=== PATIENT | female | born 1965 | race Hispanic/Latino ===

== ENCOUNTER 2016-12-29 08:50 | Outpatient (CLI) | payer BC ==
--- NOTE | 2016-12-29 13:43 | Cat Scan Report ---
CT HEAD WITHOUT CONTRAST: HISTORY: headache. Serial contiguous axial images were obtained through the cranium. Intravenous contrast material was not administered. The ventricles are normal in size and appearance. There is no mass effect or midline shift. No areas of abnormally increased or decreased attenuation are seen. No mass lesion is seen. The mastoid air cells and visualized portions of the sinuses are normal. IMPRESSION: Cranial CT scan within normal limits.
== END 2016-12-29 08:51 | disposition home or self-care (01) ==
LOC: CT 08:50
PROVIDERS: ATTEND Family Medicine
DX: I10 Essential (primary) hypertension (principal); R04.0 Epistaxis; R51 Headache; R73.01 Impaired fasting glucose
CPT/HCPCS: 36415; 70450; 83036

== ENCOUNTER 2017-12-27 06:08 | Outpatient (CLI) | payer BC ==
[2017-12-27 09:06] LABS: Basophils % (Auto) 0.5 % (0.0-1.8); Eosinophils # (Auto) 0.1 K/mm3 (0.0-0.4); Eosinophils % (Auto) 1.7 % (0.0-4.3); Hemoglobin 12.6 gm/dl (10.1-14.3); Lymphocytes # (Auto) 2.4 K/mm3 (1.2-5.4); Lymphocytes % (Auto) 46.1 % (13.4-35.0); Mean Corpuscular HGB Conc 33 % (30-34); Mean Corpuscular Hemoglobin 29 pg (28-32); Mean Corpuscular Volume 88 fl (79-97); Monocytes # (Auto) 0.3 K/mm3 (0.0-0.8); Monocytes % (Auto) 6.1 % (0.0-7.3); Platelet Count 326 K/mm3 (140-440); Red Blood Count 4.34 M/mm3 (3.65-5.03); Red Cell Distribution Width 13.2 % (13.2-15.2)
[2017-12-27 09:12] LABS: Bacteria,Urine 1+ /HPF (Negative); Bilirubin,Urine NEG (Negative); Blood,Urine NEG (Negative); Color,Urine Yellow (Yellow); Protein,Urine <15 mg/dL mg/dL (Negative); Urobilinogen,Urine < 2.0 mg/dL (<2.0)
[2017-12-27 09:26] LABS: Alanine Aminotransferase 18 units/L (7-56); Albumin 4.5 g/dL (3.9-5); BUN/Creatinine Ratio 23; Blood Urea Nitrogen 9 mg/dL (7-17); Calcium 9.8 mg/dL (8.4-10.2); Hemolysis Index 1
== END 2017-12-27 06:09 | disposition home or self-care (01) ==
LOC: CARD 06:08
PROVIDERS: ATTEND Family Medicine
DX: Z01.818 Encounter for other preprocedural examination (principal); R73.03 Prediabetes; I10 Essential (primary) hypertension; K21.9 Gastro-esophageal reflux disease without esophagitis
CPT/HCPCS: 36415; 80053; 81001; 83036; 85025; 85730; 93005; 93010

== ENCOUNTER 2018-01-19 05:48 | Day surgery (SDC) | payer BC ==
[~2018-01-19 05:48] MED LIST: ANCEF/STERILE WATER 2 GM/20 ML IV NR; MARCAINE 0.25% INFILTRATI ONE; NACL 0.9% IR ONE; XYLOCAINE 1%/ EPI 1:100,000 INFILTRATI ONE
[2018-01-19] MEDS ORDERED: NACL BACTERIOSTATIC INFILTRATI ONE (06:42)
[2018-01-19] MEDS ORDERED: XYLOCAINE MPF 2% ONE (06:57)
[2018-01-19] MEDS ORDERED: ZOFRAN ONE (06:58)
[2018-01-19] MEDS ORDERED: ROBINUL ONE (06:58)
[2018-01-19] MEDS ORDERED: DIPRIVAN 10 MG/ML IV ONE (06:58)
[2018-01-19] MEDS ORDERED: SUBLIMAZE ONE ×2 (06:58→08:59)
[2018-01-19] MEDS ORDERED: MARCAINE 0.25% INFILTRATI ONE (06:59)
[2018-01-19] MEDS ORDERED: XYLOCAINE 1%/ EPI 1:100,000 INFILTRATI ONE (06:59)
[2018-01-19] MEDS ORDERED: VERSED IV NR (07:31)
[2018-01-19] MEDS ORDERED: LACTATED RINGERS 1,000 ML IV SCH (07:32)
--- NOTE | 2018-01-19 07:40 | Anesthesia Consultation ---
Anesthesia Consult and Med Hx Date of service: 01/19/18 - Airway Anesthetic Teeth Evaluation: Good ROM Head & Neck: Adequate Mental/Hyoid Distance: Adequate Mallampati Class: Class II Intubation Access Assessment: Probably Good - Pre-Operative Health Status ASA Pre-Surgery Classification: ASA2 Proposed Anesthetic Plan: General - Pulmonary Hx Smoking: No Hx Sleep Apnea: No (KRISTIN PRE SCREEN HIGH RISK.) - Cardiovascular System Hx Hypertension: Yes (X 15 YRS) - Central Nervous System Hx Back Pain: Yes (Herniated Disc) - Gastrointestinal Hx Gastroesophageal Reflux Disease: Yes - Other Systems Hx Cancer: No Hx Obesity: Yes
--- NOTE | 2018-01-19 07:41 | Anesthesia Day of Surgery ---
Anesthesia Day of Surgery - Day of Surgery Patient Examined: Yes Patient H&P Reviewed: Yes Patient is NPO: Yes
[2018-01-19] MEDS ORDERED: DEMEROL IV PRN (08:01)
[2018-01-19] MEDS ORDERED: DILAUDID IV PRN (08:01)
[2018-01-19] MEDS ORDERED: ZOFRAN IV PRN (08:01)
[2018-01-19] MEDS ORDERED: DECADRON ONE (08:59)
--- NOTE | 2018-01-19 09:38 | Short Stay Summary ---
Short Stay Documentation - Allergies and Medications Current Medications: Allergies No Known Drug Allergies Allergy (Verified 05/28/14 15:53) Unknown Home Medications Medication Instructions Recorded Confirmed Last Taken Type Metoprolol [Lopressor TAB] 50 mg PO DAILY 06/12/14 01/16/18 06/11/14 History Ranitidine HCl [Zantac] 300 mg PO PRN PRN 06/12/14 01/16/18 06/11/14 History Amlodipine Besylate/Valsartan 1 tab PO DAILY 01/16/18 01/16/18 Unknown History [Amlodipine-Valsartan 10-320 mg] Ibuprofen [Advil 100 MG tab] 200 mg PO Q6H PRN 01/16/18 01/16/18 Unknown History hydroCHLOROthiazide [HCTZ] 25 mg PO QDAY 01/16/18 01/16/18 Unknown History Active Medications Cefazolin Sodium (Ancef/Sterile Water 2 Gm/20 Ml) 2 gm IV PREOP NR Stop: 01/19/18 23:00 Hydromorphone HCl (Dilaudid) 0.5 mg IV Q10MIN PRN PRN Reason: Pain , Severe (7-10) Stop: 01/19/18 20:00 Lactated Ringer's (Lactated Ringers) 1,000 mls @ 75 mls/hr IV DIRECT MEG Meperidine HCl (Demerol) 25 mg IV ONCE PRN PRN Reason: Shivering Stop: 01/19/18 15:00 Midazolam HCl (Versed) 2 mg IV ONCE NR Stop: 01/19/18 15:00 Ondansetron HCl (Zofran) 4 mg IV ONCE PRN PRN Reason: Nausea And Vomiting Stop: 01/19/18 20:00 Short Stay Discharge Plan Activity: no restrictions, advance as tolerated Weight Bearing Status: Weight Bear as Tolerated Diet: advance as tolerated, other (resume old diet as tolerated) Wound: change dressing, per your surgeon's advice Special Instructions: physical therapy, occupational therapy Durable Medical Equipment Needed Upon Discharge: Cane Additional Instructions: follow DC instruction sheet. start PT Pain meds prn Follow up with: NOHELIA ALICEA MD [Staff Physician] - 14 Days ALLISON VILLALOBOS MD [Primary Care Provider] - 7 Days
[2018-01-19 11:29] VITALS: BP 130/74
--- NOTE | 2018-01-19 12:47 | Operative Report ---
PREOPERATIVE DIAGNOSES: 1. Medial meniscus tear of the right knee. 2. Osteoarthritis, right knee. POSTOPERATIVE DIAGNOSES: 1. Medial meniscus tear, posterior horn, right knee. 2. Iwaockso-cj-rmcxop osteoarthritis, right knee joint. 3. Synovial hypertrophy, synovial proliferation, right knee joint. PROCEDURES PERFORMED: 1. Right knee arthroscopy. 2. Partial medial meniscectomy. 3. Debridement chondroplasty. 4. Partial synovectomy, right knee joint. BRIEF HISTORY: The patient is a 52-year-old lady, who had a painful right knee, failed conservative treatment, opted for surgical intervention. Risks and benefits were discussed, informed consent obtained, brought to the hospital for the above procedure. DETAILS OF THE OPERATIVE REPORT: The patient was taken to the operating room. After smooth anesthesia, all bony prominences carefully padded. The patient was given 2 gram Ancef half an hour before the procedure. Right knee and right lower extremity was prepped and draped in sterile fashion. Leg elevated, tourniquet inflated to 300 mmHg. Portal sites were infiltrated with 1% lidocaine with epinephrine. High lateral portal was created. Arthroscope introduced. Diagnostic arthroscopy was performed. Under direct visualization, direct medial portal was created. I noticed a flap tear of the cartilage, loos cartilage pieces around the knee with loose floating cartilage pieces, which were suctioned out. A tear in the posterior horn of the medial meniscus was noticed with some fraying and calm. It was in the nonvascular zone mostly. A partial meniscectomy was done, only less than 10% meniscus was debrided and a stable meniscus rim was achieved. We noticed a segment of osteoarthritis of the medial compartment on the medial tibial and femoral condyle, grade 4 changes on the tibial condyle about 40-50%, grade 3 about 30-40%, medial femoral condyle, grade 4 changes in about 40%, and grade 3 changes in about 40%. PCL was intact, ACL chronic partial tear which is intact in keane form. Synovium, synovial hypertrophy, synovial proliferation; using synovial resector, partial synovectomy was performed. No active bleeder as such. Fat pads were normal. The lateral meniscus was intact and pristine. The lateral tibial plateau shows grade 3 changes throughout her about 80%, lateral femoral condyle is pristine. After the 3 procedures were performed, the fluid was suctioned out and necessary pictures were taken throughout the procedure. Fluid was suctioned out and closure was commenced. Arthroscope portal sites were closed with 3-0 nylon interrupted sutures and 0.25% Marcaine plain injected 3 mL into each portal. Dressing was done with Xeroform, 4 x 4s, ABD, cast padding, Humberto wrap. The patient tolerated the procedure very well, shifted to recovery room in stable condition. Sponge and needle count was correct. JOB# [id number] KYRIE/KEN
== END 2018-01-19 11:15 | disposition home or self-care (01) ==
LOC: OR 05:48
PROVIDERS: ATTEND Orthopaedic Surgery
DX: S83.241A Other tear of medial meniscus, current injury, right knee, initial encounter (principal); M17.11 Unilateral primary osteoarthritis, right knee; I10 Essential (primary) hypertension; K21.9 Gastro-esophageal reflux disease without esophagitis; F41.9 Anxiety disorder, unspecified; Z79.899 Other long term (current) drug therapy; Z79.01 Long term (current) use of anticoagulants; Z90.49 Acquired absence of other specified parts of digestive tract; Z98.51 Tubal ligation status; Z86.2 Personal history of diseases of the blood and blood-forming organs and certain disorders involving the immune mechanism; X58.XXXA Exposure to other specified factors, initial encounter; Y93.89 Activity, other specified; Y92.89 Other specified places as the place of occurrence of the external cause; Y99.8 Other external cause status
CPT/HCPCS: 29881; 36415; 81025; 82947; 84132; A4217; J0690; J1100; J2250; J2405; J2704; J3010; J7120

== ENCOUNTER 2018-05-31 07:24 | Outpatient (CLI) | payer BC ==
[2018-05-31 07:49] LABS: Basophils % (Auto) 0.6 % (0.0-1.8); Eosinophils # (Auto) 0.2 K/mm3 (0.0-0.4); Eosinophils % (Auto) 3.4 % (0.0-4.3); Hematocrit 39.2 % (30.3-42.9); Hemoglobin 12.9 gm/dl (10.1-14.3); Lymphocytes # (Auto) 2.8 K/mm3 (1.2-5.4); Lymphocytes % (Auto) 50.8 % (13.4-35.0); Mean Corpuscular HGB Conc 33 % (30-34); Mean Corpuscular Volume 87 fl (79-97); Monocytes # (Auto) 0.5 K/mm3 (0.0-0.8); Monocytes % (Auto) 8.3 % (0.0-7.3); Platelet Count 339 K/mm3 (140-440); Red Blood Count 4.49 M/mm3 (3.65-5.03); Red Cell Distribution Width 13.6 % (13.2-15.2)
[2018-05-31 08:14] LABS: Alanine Aminotransferase 25 units/L (7-56); Albumin 4.4 g/dL (3.9-5); BUN/Creatinine Ratio 18; Blood Urea Nitrogen 7 mg/dL (7-17); Calcium 9.6 mg/dL (8.4-10.2); Hemolysis Index 6; LDL Cholesterol,Direct 160 mg/dL (50-130)
[2018-05-31 08:14] LABS: Bacteria,Urine 1+ /HPF (Negative); Bilirubin,Urine NEG (Negative); Blood,Urine NEG (Negative); Color,Urine Amber (Yellow); Mucus,Urine 3+ /HPF; Urobilinogen,Urine < 2.0 mg/dL (<2.0)
[2018-05-31 08:54] LABS: Chol/HDL Ratio 4.59 %; HDL Cholesterol 44 mg/dL (40-59)
== END 2018-05-31 07:25 | disposition home or self-care (01) ==
LOC: LAB 07:24
DX: Z13.220 Encounter for screening for lipoid disorders (principal); Z13.29 Encounter for screening for other suspected endocrine disorder; I10 Essential (primary) hypertension; K21.9 Gastro-esophageal reflux disease without esophagitis; R73.03 Prediabetes; E66.9 Obesity, unspecified; Z90.49 Acquired absence of other specified parts of digestive tract
CPT/HCPCS: 36415; 80053; 80061; 81001; 83036; 84443; 85025

== ENCOUNTER 2019-02-02 06:04 | Day surgery (SDC) | payer BC ==
[2019-02-02] MEDS ORDERED: LIDOCAINE MPF (2%) 20 MG/1 ML VIAL 5 ML ONE (07:30)
[2019-02-02] MEDS ORDERED: SODIUM CHLORIDE 0.9% 1000 ML 1,000 ML ONE (07:36)
--- NOTE | 2019-02-02 07:38 | Short Stay Summary ---
Short Stay Documentation Date of service: 02/02/19 (Same Day Endoscopy) Narrative H&P: Hx of Barretts Esophagus. Duration of several years. Currently on ranitidine with minimal reflux; no dysphagia, weight loss, or odynophagia. Not currently a smoker. Denies a family hx of esophageal cancer. No chest pain or SOB. - History Principal diagnosis: Barretts/GERD H&P: obtained from office Past Medical History: GERD, hypertension Past Surgical History: cholecystectomy, Other (Tubal ligation, breast reduction, meniscus surgery) Social history: no smoking, no alcohol abuse - Allergies and Medications Current Medications: Allergies No Known Drug Allergies Allergy (Verified 05/28/14 15:53) Unknown Home Medications Medication Instructions Recorded Confirmed Last Taken Type Metoprolol [Lopressor TAB] 50 mg PO DAILY 06/12/14 01/19/18 01/19/18 05:15 History Ranitidine HCl [Zantac] 300 mg PO PRN PRN 06/12/14 01/19/18 01/18/18 History Amlodipine Besylate/Valsartan 1 tab PO DAILY 01/16/18 01/19/18 01/18/18 History [Amlodipine-Valsartan 10-320 mg] Ibuprofen [Advil 100 MG tab] 200 mg PO Q6H PRN 01/16/18 01/19/18 1 Week Ago History ~01/12/18 hydroCHLOROthiazide [HCTZ] 25 mg PO QDAY 01/16/18 01/16/18 01/18/18 History I have reviewed and reconciled medications. - Physical exam General appearance: no acute distress, well-nourished Lungs: Clear to auscultation Heart: Regular rate, No murmurs Gastrointestinal: normal Extremities: no ischemia, No edema Neurological: Normal gait, Normal speech, Normal tone - Brief post op/procedure progress note Date of procedure: 02/02/19 Pre-op diagnosis: Reflux Post-op diagnosis: other (Likely Barretts) Procedure: EGD with cold bx Anesthesia: MAC Findings: 1. Likely SS Barretts (<2cm) at GE jxn) 2. Reflux esophagitis (Grade B) Surgeon: JOVITA SOUTH Estimated blood loss: minimal Pathology: list (1. Esophagus) Specimen disposition: to lab Condition: stable - Hospital course Hospital course: Same day procedure (EGD); outpatient - Disposition Condition at discharge: Good Disposition: DC-01 TO HOME OR SELFCARE Short Stay Discharge Plan Additional Instructions: Avoid Aspirin NSAIDS D/C Instructions X 3 DAYS Avoid the following for the time period specified by your physician: - Asprin(Momo, Bufferin, Excedrin, Goody's or BC Powders) -Ibuprofen (Advil or Motrin) -Naproxen (Aleve or Naprosyn) -Indomethacin, Sulindac, Etodolac, Diclofenac -Meloxicam, Piroxicam, Tenoxicam, Droxicam, Lornoxicam, Isoxicam - Mefenamic acid, Meclofenamic acid, Flufenamic acid, Tolfenamic acid -Celecoxib (Celebrex) Post Sedation D/C Instructions When you return home you may resume your regular diet unless otherwise directed. -Go directly home from the hospital and rest quietly. You may resume normal activities tomorrow. -Do NOT drive, return to work, operate any machinery or make any important personal or business decisions today. -Do NOT drink any alcohol or take nerve or sleeping drugs. They add to the effects of the medicine still present in your body. Follow up with: ALLISON VILLALOBOS MD [Primary Care Provider] - 7 Days
[2019-02-02] MEDS ORDERED: PROPOFOL 200 MG/20 ML VIAL IV ONE ×2 (07:45)
--- NOTE | 2019-02-02 07:56 | Anesthesia Consultation ---
Anesthesia Consult and Med Hx Date of service: 02/02/19 - Airway Anesthetic Teeth Evaluation: Crowns ROM Head & Neck: Adequate Mental/Hyoid Distance: Adequate Mallampati Class: Class II Intubation Access Assessment: Probably Good - Pre-Operative Health Status ASA Pre-Surgery Classification: ASA2 Proposed Anesthetic Plan: MAC - Pulmonary Hx Smoking: No Hx Asthma: No Hx Respiratory Symptoms: No SOB: No COPD: No Home Oxygen Therapy: No Hx Pneumonia: No Hx Sleep Apnea: No (KRISTIN PRE SCREEN HIGH RISK.) - Cardiovascular System Hx Hypertension: Yes Hx Coronary Artery Disease: No Hx Heart Attack/AMI: No Hx Angina: No Hx Percutaneous Transluminal Coronary Angioplasty (PTCA): No Hx Cardia Arrhythmia: No Hx Pacemaker: No Hx Internal Defibrillator: No Hx Valvular Heart Disease: No Hx Heart Murmur: No Hx Peripheral Vascular Disease: No - Central Nervous System Hx Neuromuscular Disorder: No Hx Seizures: No CVA: No Hx Back Pain: Yes (Herniated Disc) Hx Psychiatric Problems: No - Gastrointestinal Hx Ulcer: No Hx Gastroesophageal Reflux Disease: Yes - Endocrine Hx Renal Disease: No Hx End Stage Renal Disease: No Hx Cirrhosis: No Hx Liver Disease: No Hx Insulin Dependent Diabetes: No Hx Non-Insulin Dependent Diabetes: No Hx Thyroid Disease: No Hx Hypothyroidism: No Hx Hyperthyroidism: No - Hematic Hx Anemia: No Hx Sickle Cell Disease: No - Other Systems Hx Alcohol Use: No Hx Substance Use: No Hx Cancer: No Hx Obesity: Yes
--- NOTE | 2019-02-02 07:57 | Anesthesia Consultation ---
Anesthesia Consult and Med Hx Date of service: 02/02/19 - Airway Anesthetic Teeth Evaluation: Good, Crowns ROM Head & Neck: Adequate Mental/Hyoid Distance: Adequate Mallampati Class: Class II - Pulmonary Exam CTA: Yes - Cardiac Exam Cardiac Exam: RRR - Pre-Operative Health Status ASA Pre-Surgery Classification: ASA2 Proposed Anesthetic Plan: MAC - Pulmonary Hx Smoking: No Hx Respiratory Symptoms: No Hx Sleep Apnea: No (KRISTIN PRE SCREEN HIGH RISK.) - Cardiovascular System Hx Hypertension: Yes - Central Nervous System Hx Back Pain: Yes (Herniated Disc) - Gastrointestinal Hx Gastroesophageal Reflux Disease: Yes - Endocrine Hx Renal Disease: No - Other Systems Hx Cancer: No Hx Obesity: Yes - Additional Comments Anesthesia Medical History Comments: Patient denied previous anesthesia complications.
--- NOTE | 2019-02-02 07:57 | Anesthesia Day of Surgery ---
Anesthesia Day of Surgery - Day of Surgery Patient Examined: Yes Patient H&P Reviewed: Yes Patient is NPO: Yes Beta Blockers: Yes
[2019-02-02] MEDS ORDERED: SODIUM CHLORIDE 0.9% 1000 ML 1,000 ML IV SCH (08:00)
[2019-02-02 08:47] VITALS: BP 156/82
--- NOTE | 2019-02-02 18:02 | Post Anesthesia Evaluation ---
- Post Anesthesia Evaluation Patient Participated: Yes Airway Patent: Yes Stable Respiratory Function: Yes Nausea/Vomiting: No Temp > 96.8F: Yes Pain Manageable: Yes Adequeate Hydration: No Anesthesia Complications: Yes Block Receding Appropriately: Not Applicable Patient on Ventilator: No
--- NOTE | 2019-02-06 09:02 | Operative Report ---
PROCEDURE PERFORMED: Esophagogastroduodenoscopy with cold biopsy. PREOPERATIVE DIAGNOSIS: History of Diggs's esophagus with acid reflux/surveillance. POSTOPERATIVE DIAGNOSES: Diggs's esophagus. ENDOSCOPIST: Mickey Pierce MD INSTRUMENT: Olympus video endoscope. MEDICATIONS: MAC anesthesia by [facility]. COMPLICATIONS: No apparent complications. ESTIMATED BLOOD LOSS: Minimal. SPECIMENS: Lower third of the esophagus, rule out Diggs's. IMPLANTS: None. ASSISTANTS: None. CONDITION AT DISCHARGE: Stable. TECHNIQUE: The patient was informed of the risks and benefits of the procedure. She signed the informed consent to proceed. She was placed in the left lateral decubitus position. The above sedative medications were given. Her vital signs remained stable throughout the procedure. The instrument was advanced from the mouth to the second portion of the duodenum under direct visualization. At that point, the bowel was insufflated and the endoscope was slowly withdrawn. FINDINGS: 1. Worthington-colored mucosa in the lower third of the esophagus at the GE junction, likely short segment Diggs's esophagus extending less than 2 cm. A. No worrisome mucosa using narrow band imaging. B. The Diggs's esophagus was sampled in a four quadrant fashion every 0.5 cm and placed in 1 pathology jar. 2. Otherwise, normal upper gastrointestinal tract. RECOMMENDATIONS: 1. Resume normal diet and activities. 2. Follow up pathology. 3. If Diggs's is present, would repeat upper endoscopy in 2 years. 4. Continue current antacid therapy. JOB# [id number] RAFI/NTS
== END 2019-02-02 08:52 | disposition home or self-care (01) ==
LOC: GIO 06:04
PROVIDERS: ATTEND Internal Medicine Gastroenterology
DX: K22.70 Barrett's esophagus without dysplasia (principal); K21.0 Gastro-esophageal reflux disease with esophagitis; I10 Essential (primary) hypertension; E66.9 Obesity, unspecified; M19.90 Unspecified osteoarthritis, unspecified site; F41.9 Anxiety disorder, unspecified; Z79.899 Other long term (current) drug therapy; Z90.49 Acquired absence of other specified parts of digestive tract; Z98.51 Tubal ligation status; Z98.890 Other specified postprocedural states; Z68.36 Body mass index [BMI] 36.0-36.9, adult
CPT/HCPCS: 43239; 88305; J2704; J7030

== ENCOUNTER 2019-06-11 07:23 | Outpatient (CLI) | payer BC ==
[2019-06-11 08:04] LABS: Alanine Aminotransferase 22 units/L (7-56); Albumin 4.5 g/dL (3.9-5); BUN/Creatinine Ratio 23; Blood Urea Nitrogen 9 mg/dL (7-17); Calcium 9.9 mg/dL (8.4-10.2); HDL Cholesterol 50 mg/dL (40-59); Hemolysis Index 0; LDL Cholesterol,Direct 155 mg/dL (50-130)
== END 2019-06-11 07:24 | disposition home or self-care (01) ==
LOC: CARD 07:23
DX: I10 Essential (primary) hypertension (principal)
CPT/HCPCS: 36415; 80053; 80061; 93005; 93010

== ENCOUNTER 2020-01-22 06:05 | Outpatient (CLI) | payer BC ==
[2020-01-22 07:10] LABS: Basophils % (Auto) 0.6 % (0.0-1.8); Eosinophils # (Auto) 0.2 K/mm3 (0.0-0.4); Eosinophils % (Auto) 2.9 % (0.0-4.3); Hematocrit 37.2 % (30.3-42.9); Hemoglobin 12.6 gm/dl (10.1-14.3); Lymphocytes % (Auto) 47.4 % (13.4-35.0); Mean Corpuscular HGB Conc 34 % (30-34); Mean Corpuscular Volume 88 fl (79-97); Monocytes # (Auto) 0.3 K/mm3 (0.0-0.8); Monocytes % (Auto) 5.3 % (0.0-7.3); Platelet Count 293 K/mm3 (140-440); Red Blood Count 4.26 M/mm3 (3.65-5.03); Red Cell Distribution Width 13.8 % (13.2-15.2)
[2020-01-22 07:16] LABS: Bilirubin,Urine NEG (Negative); Blood,Urine SM (Negative); Color,Urine Yellow (Yellow); Mucus,Urine FEW /HPF; Protein,Urine <15 mg/dL mg/dL (Negative); Urobilinogen,Urine < 2.0 mg/dL (<2.0)
[2020-01-22 08:15] LABS: Alanine Aminotransferase 21 units/L (7-56); Albumin 4.3 g/dL (3.9-5); Blood Urea Nitrogen 10 mg/dL (7-17); Calcium 9.7 mg/dL (8.4-10.2); Hemolysis Index 10
[2020-01-22 08:18] LABS: BUN/Creatinine Ratio 25
[2020-01-22 08:40] LABS: LDL Cholesterol,Direct 4 mg/dL (50-130)
[2020-01-22 10:09] LABS: Chol/HDL Ratio 3.49 %; HDL Cholesterol 53 mg/dL (40-59)
== END 2020-01-22 06:06 | disposition home or self-care (01) ==
LOC: LAB 06:05
PROVIDERS: ATTEND Physician Assistant
DX: Z00.00 Encounter for general adult medical examination without abnormal findings (principal); R73.03 Prediabetes; Z13.220 Encounter for screening for lipoid disorders; I10 Essential (primary) hypertension; M19.90 Unspecified osteoarthritis, unspecified site
CPT/HCPCS: 36415; 80053; 80061; 81001; 83036; 85025

== ENCOUNTER 2020-02-27 06:05 | Outpatient (CLI) | payer BC ==
[2020-02-27 09:23] LABS: Alanine Aminotransferase 24 units/L (7-56); Albumin 4.3 g/dL (3.9-5)
[2020-02-27 09:33] LABS: Bilirubin,Direct < 0.2 mg/dL (0-0.2)
== END 2020-02-27 06:06 | disposition home or self-care (01) ==
LOC: LAB 06:05
PROVIDERS: ATTEND Internal Medicine
DX: I10 Essential (primary) hypertension (principal); Z79.899 Other long term (current) drug therapy
CPT/HCPCS: 36415; 80076

== ENCOUNTER 2020-05-21 12:16 | Emergency (ER) | payer BC ==
[2020-05-21 13:06] VITALS: BP 181/90
--- NOTE | 2020-05-21 13:10 | Emergency Department Report ---
Stated Complaint: HBP - HPI History of Present Illness: 54-year-old -[place] female presents to the emergency room concern for elevated blood pressure. Patient states that she is checked her blood pressure at home and has been elevated. Patient reports that she is followed by Dr. Reuben Wolf at [facility] and is currently taking 3 blood pressure medications. Patient denies any headache no chest pain or shortness of breath. - Exam Vital Signs: Vital Signs 05/21/20 13:00 Temperature 98.4 F Pulse Rate 76 Respiratory 16 Rate Blood Pressure 181/90 O2 Sat by Pulse 100 Oximetry Physical Exam: Gen: alert oriented NAD Cardic: regular rate and rhythm no murmurs appreciated Resp: Clear to auscultation bilateral no wheezing no rales or rhonchi. Abdomen: Soft nontender nondistended normal bowel sounds. Mini neuro: Normal finger to nose exam, [id number] normal, Romberg neg, strengh 4/5 all extrimities, Alert and oriented time 3 Crainal nerve II-IIX intact MSE screening note: Focused history and physical exam performed. Due to findings the following was ordered: 54-year-old -[place] female presents to the emergency room concern for elevated blood pressure. Patient states that she is checked her blood pressure at home and has been elevated. Patient reports that she is followed by Dr. Reuben Wolf at [facility] and is currently taking 3 blood pressure medications. Patient denies any headache no chest pain or shortness of breath. ED Disposition for MSE Clinical Impression: Hypertension Disposition: DC-01 TO HOME OR SELFCARE Is pt being admited?: No Does the pt Need Aspirin: No Condition: Stable Instructions: Hypertension (ED), Hypertension, Adult, [id number] Additional Instructions: Recommend to follow-up with your primary care provider or senior linux engineer to reevaluate your blood pressure as she may need adjustments to blood pressure medication. Be sure to increase your water intake avoid processed foods. Referrals: REUBEN WOLF MD [Referring] - 3-5 Days Forms: Work/School Release Form(ED)
== END 2020-05-21 13:24 | disposition home or self-care (01) ==
LOC: ED 12:16
DX: I10 Essential (primary) hypertension (principal)
CPT/HCPCS: 99281

== ENCOUNTER 2020-05-26 09:09 | Outpatient (CLI) | payer BC ==
[2020-05-26 10:18] LABS: Alanine Aminotransferase 32 units/L (7-56); Albumin 4.4 g/dL (3.9-5); Blood Urea Nitrogen 11 mg/dL (7-17); Calcium 9.4 mg/dL (8.4-10.2); Chol/HDL Ratio 3.72 %; HDL Cholesterol 50 mg/dL (40-59); Hemolysis Index 2; LDL Cholesterol,Direct 132 mg/dL (50-130)
[2020-05-26 10:22] LABS: BUN/Creatinine Ratio 28
== END 2020-05-26 09:10 | disposition home or self-care (01) ==
LOC: LAB 09:09 → EDSTATUS 09:14
PROVIDERS: ATTEND Family Medicine
DX: R73.03 Prediabetes (principal)
CPT/HCPCS: 36415; 80053; 80061; 83036

== ENCOUNTER 2020-07-01 09:45 | Outpatient (CLI) | payer BC ==
--- NOTE | 2020-07-01 12:31 | XRay Report ---
LEFT SHOULDER 3 VIEWS INDICATION: LEFT SHOULDER PAIN. COMPARISON: None. IMPRESSION: No acute osseous or soft tissue abnormality. No significant DJD. Signer Name: Harjinder Ledesma Jr, MD Signed: 07/01/2020 12:20 PM Workstation Name: [id number]
--- NOTE | 2020-07-10 08:56 | Magnetic Resonance Report ---
MRI LUMBAR SPINE 07/01/2020 INDICATION / CLINICAL INFORMATION: LOWER BACK AND RT HIP/LEG PAIN. COMPARISON: None available. FINDINGS: GENERAL OBSERVATIONS: Unenhanced MR images of the lumbar spine were obtained. There is mild left convex scoliosis of the lumbar spine present. Vertebral body alignment is otherwis e unremarkable. There is no evidence of acute abnormality. [id number] ANALYSIS: L5-S1: Minimal diffuse disc bulging and moderate facet degenerative changes. L4-5: Minimal diffuse disc bulging and moderate facet degenerative changes. L3-4: Mild symmetric diffuse disc bulging and mild facet degenerative changes. L2-3: Disc space narrowing and moderate diffuse disc bulging. Small left paracentral protrusion. No e vidence of stenosis or nerve root compression. L1-2: Unremarkable. BONE MARROW: No significant abnormality. SPINAL CORD/CAUDA EQUINA: Normal PARASPINAL SOFT TISSUES: No significant abnormality. IMPRESSION: Mild to moderate degenerative disc and facet changes, with no evidence of stenosis or nerve root comp ression. Signer Name: Dada Flores MD Signed: 07/01/2020 1:42 PM Workstation Name: [id number]
--- NOTE | 2020-07-10 08:56 | Magnetic Resonance Report ---
MRI THORACIC SPINE WITHOUT CONTRAST HISTORY: Lower back pain and right hip/leg pain COMPARISON: None. TECHNIQUE: Multiplane, multisequence non-contrast thoracic spine MRI performed. CONTRAST: None. FINDINGS: Alignment: Normal. Vertebrae:No significant abnormality. Discs: There is mild diffuse disc desiccation and narrowing. No large posterior bulging disc or focal herniation. Visualized cord: No significant abnormality. T1-2: No significant disc abnormality, spinal canal or neural foraminal stenosis. T2-3: No significant disc abnormality, spinal canal or neural foraminal stenosis. T3-4: No significant disc abnormality, spinal canal or neural foraminal stenosis. T4-5: No significant disc abnormality, spinal canal or neural foraminal stenosis. T5-6: No significant disc abnormality, spinal canal or neural foraminal stenosis. T6-7: No significant disc abnormality, spinal canal or neural foraminal stenosis. T7-8: No significant disc abnormality, spinal canal or neural foraminal stenosis. T8-9: No significant disc abnormality, spinal canal or neural foraminal stenosis. T9-10: No significant disc abnormality, spinal canal or neural foraminal stenosis. T10-11: No significant disc abnormality, spinal canal or neural foraminal stenosis. T11-12: No significant disc abnormality, spinal canal or neural foraminal stenosis. Additional findings: The localizer images demonstrate a mild diffuse posterior bulging disc at C5-6 w hich abuts the anterior cervical spinal cord. No central canal narrowing. IMPRESSION: Mild diffuse disc desiccation and narrowing is noted throughout the thoracic spine. No evidence for l arge bulging discs, herniation, central canal stenosis or neural foraminal stenosis. No acute osseous abnormality. Signer Name: Harjinder Ledesma Jr, MD Signed: 07/01/2020 12:13 PM Workstation Name: [id number]
== END 2020-07-01 09:46 | disposition home or self-care (01) ==
LOC: MRI 09:45
PROVIDERS: ATTEND Psychiatry & Neurology Neurology
DX: M51.27 Other intervertebral disc displacement, lumbosacral region (principal); M48.061 Spinal stenosis, lumbar region without neurogenic claudication; M47.817 Spondylosis without myelopathy or radiculopathy, lumbosacral region; M25.512 Pain in left shoulder; M54.2 Cervicalgia
CPT/HCPCS: 72146; 72148

== ENCOUNTER 2020-08-06 08:05 | Emergency (ER) | payer BC ==
--- NOTE | 2020-08-06 08:21 | Event Note ---
ED Screening Note Date of service: 08/06/20 Time: 08:20 ED Screening Note: Patient complains of dizziness and headache x2 weeks Also complains of blood pressure being elevated Denies vision changes, chest pain, shortness of breath This initial assessment/diagnostic orders/clinical plan/treatment(s) is/are subject to change based on patients health status, clinical progression and re- assessment by fellow clinical providers in the ED. Further treatment and workup at subsequent clinical providers discretion. Patient/guardian urged not to elope from the ED as their condition may be serious if not clinically assessed and managed. Initial orders include: Labs EKG CT head
--- NOTE | 2020-08-06 08:47 | Cat Scan Report ---
CT HEAD WITHOUT CONTRAST INDICATION / CLINICAL INFORMATION: Dizziness, headache. TECHNIQUE: All CT scans at this location are performed using CT dose reduction for ALARA by means of automated e xposure control. COMPARISON: 08/23/2019 FINDINGS: There is no acute intracranial hemorrhage. Ventricles are normal in size without midline shift or mas s effect. Calcifications in basal ganglia region left slightly greater than right incidentally noted. Orbits and intraocular muscles appear normal sella and pituitary appear normal. ADDITIONAL FINDINGS: None. IMPRESSION: 1. No acute intracranial abnormality. Signer Name: Satish Langley MD Signed: 08/06/2020 8:42 AM Workstation Name: [id number]
[2020-08-06 09:11] LABS: Bilirubin,Urine NEG (Negative); Blood,Urine NEG (Negative); Color,Urine Yellow (Yellow); Mucus,Urine FEW /HPF; Protein,Urine <15 mg/dL mg/dL (Negative); Urobilinogen,Urine < 2.0 mg/dL (<2.0)
[2020-08-06 09:20] LABS: Basophils % (Auto) 0.5 % (0.0-1.8); Eosinophils # (Auto) 0.1 K/mm3 (0.0-0.4); Eosinophils % (Auto) 2.2 % (0.0-4.3); Hematocrit 38.3 % (30.3-42.9); Hemoglobin 13.2 gm/dl (10.1-14.3); Lymphocytes # (Auto) 2.4 K/mm3 (1.2-5.4); Lymphocytes % (Auto) 53.8 % (13.4-35.0); Mean Corpuscular HGB Conc 35 % (30-34); Mean Corpuscular Volume 88 fl (79-97); Monocytes # (Auto) 0.2 K/mm3 (0.0-0.8); Platelet Count 305 K/mm3 (140-440); Red Blood Count 4.36 M/mm3 (3.65-5.03); Red Cell Distribution Width 13.4 % (13.2-15.2)
[2020-08-06 09:52] LABS: Alanine Aminotransferase 21 units/L (7-56); Albumin 4.1 g/dL (3.9-5); Blood Urea Nitrogen 9 mg/dL (7-17); Calcium 9.4 mg/dL (8.4-10.2); Hemolysis Index 7
--- NOTE | 2020-08-06 10:03 | Emergency Department Report ---
HPI - General Chief Complaint: High BP Time Seen by Provider: 08/06/20 08:13 - HPI HPI: Room 22 The patient is a 55-year-old female present with chief complaint of hypertension. The patient states for the past 2 weeks she is noticing blood pressure has been elevated. Patient states she has noticed intermittent lightheadedness and intermittent headaches for the same time. Patient admits to nausea but denies vomiting or fever. Patient denies history of cough. Yesterday and the patient states she was on her way to work when she began to feel lightheaded so she went to her primary physician's office. She was found to be hypertensive and was instructed to go home and relax. The patient states this morning she got up and on her way to the kitchen she again felt "woozy" prompting her to sit down. Patient checked her blood pressure and was found to be 172/80s this prompted the patient come to the emergency department ED Past Medical Hx - Past Medical History Hx Hypertension: Yes Hx Diabetes: No (RECENT ELEVATION OF A1C- NO DX YET) Hx GERD: Yes Hx Arthritis: Yes Additional medical history: MITRAL VALVE REGURGITATION. PRE DIABETIC - Surgical History Hx Cholecystectomy: Yes Hx Breast Surgery: Yes (BREAST SURGERY) Additional Surgical History: TUBAL LIGATION - Family History Family history: no significant - Social History Smoking Status: Never Smoker Substance Use Type: None (Denies illicit drug use), Alcohol (Rarely) - Medications Home Medications: Home Medications Medication Instructions Recorded Confirmed Last Taken Type Metoprolol [Lopressor TAB] 50 mg PO DAILY 06/12/14 08/06/20 01/19/18 05:15 History Amlodipine Besylate/Valsartan 1 tab PO DAILY 01/16/18 08/06/20 01/18/18 History [Amlodipine-Valsartan 10-320 mg] Ibuprofen [Advil 100 MG tab] 200 mg PO Q6H PRN 01/16/18 08/06/20 1 Week Ago History ~01/12/18 hydroCHLOROthiazide [HCTZ] 25 mg PO QDAY 01/16/18 08/06/20 01/18/18 History Amlodipine Besylate/Valsartan 10 - 320 mg PO QDAY 08/23/19 08/06/20 08/23/19 History [Amlodipine-Valsartan 10-320 mg] Aspirin [Aspirin BABY CHEW TAB] 81 mg PO QDAY #30 tab.chew 08/24/19 08/06/20 Unknown Rx ED Review of Systems ROS: Stated complaint: ELEVATED BLOOD PRESSURE Other details as noted in HPI Constitutional: denies: fever Eyes: denies: eye pain ENT: denies: throat pain Respiratory: no symptoms reported Cardiovascular: denies: chest pain Endocrine: no symptoms reported Gastrointestinal: denies: abdominal pain Genitourinary: denies: dysuria Musculoskeletal: denies: back pain Neurological: headache, other (Lightheadedness) Physical Exam - Physical Exam Vital Signs: Vital Signs 08/06/20 08:10 Temperature 98.6 F Pulse Rate 80 Respiratory 20 Rate Blood Pressure 174/81 O2 Sat by Pulse 98 Oximetry Vital Signs 08/06/20 08/06/20 08/06/20 08:10 10:19 11:22 Temperature 98.6 F Pulse Rate 80 82 88 Respiratory 20 Rate Blood Pressure 174/81 162/84 Blood Pressure 148/74 [Right] O2 Sat by Pulse 98 Oximetry Physical Exam: GENERAL: The patient is well-developed well-nourished female lying on stretcher not appearing to be in acute distress. [] HEENT: Normocephalic. Atraumatic. Extraocular motions are intact. Patient has moist mucous membranes. No nystagmus noted NECK: Supple. Trachea midline CHEST/LUNGS: Clear to auscultation. There is no respiratory distress noted. HEART/CARDIOVASCULAR: Regular. There is no tachycardia. There is no gallop rub or murmur. ABDOMEN: Abdomen is soft, nontender. Patient has normal bowel sounds. There is no abdominal distention. SKIN: There is no rash. There is no edema. There is no diaphoresis. NEURO: The patient is awake, alert, and oriented. The patient is cooperative. The patient has no focal neurologic deficits. The patient has normal speech. Cranial nerves II through XII grossly intact. No dysmetria noted with [id number] bilaterally MUSCULOSKELETAL: There is no evidence of acute injury. ED Course Vital Signs 08/06/20 08:10 Temperature 98.6 F Pulse Rate 80 Respiratory 20 Rate Blood Pressure 174/81 O2 Sat by Pulse 98 Oximetry ED Medical Decision Making - Lab Data Result diagrams: 08/06/20 08:53 08/06/20 08:53 Laboratory Tests 08/06/20 08/06/20 08/06/20 08:48 08:53 08:53 WBC 4.5 RBC 4.36 Hgb 13.2 Hct 38.3 MCV 88 MCH 30 MCHC 35 H RDW 13.4 Plt Count 305 Lymph % (Auto) 53.8 H Coal % (Auto) 5.0 Eos % (Auto) 2.2 Baso % (Auto) 0.5 Lymph # (Auto) 2.4 Coal # (Auto) 0.2 Eos # (Auto) 0.1 Baso # (Auto) 0.0 Seg Neutrophils % 38.5 L Seg Neutrophils # 1.7 L Sodium 143 Potassium 3.7 Chloride 102.7 Carbon Dioxide 28 Anion Gap 16 BUN 9 Creatinine 0.5 L Estimated GFR > 60 BUN/Creatinine Ratio 18 Glucose 105 H Calcium 9.4 Total Bilirubin 0.30 AST 20 ALT 21 Alkaline Phosphatase 60 Troponin T < 0.010 Total Protein 7.3 Albumin 4.1 Albumin/Globulin Ratio 1.3 Urine Color Yellow Urine Turbidity Clear Urine pH 6.0 Ur Specific [place] 1.010 Urine Protein <15 mg/dl Urine Glucose (UA) Neg Urine Ketones Neg Urine Blood Neg Urine Nitrite Neg Urine Bilirubin Neg Urine Urobilinogen < 2.0 Ur Leukocyte Esterase Neg Urine WBC (Auto) 1.0 Urine RBC (Auto) 1.0 U Epithel Cells (Auto) 1.0 Urine Mucus Few - EKG Data -: EKG Interpreted by Fl EKG shows normal: sinus rhythm Rate: normal - EKG Data When compared to previous EKG there are: previous EKG unavailable Interpretation: other (No ischemic changes seen) - Radiology Data Radiology results: report reviewed (CT head), image reviewed (CT head) [facility] [address] [place] [address] Cat Scan Report Signed Patient: JORDAN MONROY MR#: [id number] 8 : 1965 Acct:[id number] Age/Sex: 55 / F ADM Date: 08/06/20 Loc: ED Attending Dr: Ordering Physician: FEDE PINTO Date of Service: 08/06/20 Procedure(s): CT head/brain wo con Accession Number(s): [id number] cc: FEDE PINTO CT HEAD WITHOUT CONTRAST INDICATION / CLINICAL INFORMATION: Dizziness, headache. TECHNIQUE: All CT scans at this location are performed using CT dose reduction for ALARA by means of automated exposure control. COMPARISON: 08/23/2019 FINDINGS: There is no acute intracranial hemorrhage. Ventricles are normal in size without midline shift or mass effect. Calcifications in basal ganglia region left slightly greater than right incidentally noted. Orbits and intraocular muscles appear normal sella and pituitary appear normal. ADDITIONAL FINDINGS: None. IMPRESSION: 1. No acute intracranial abnormality. Signer Name: Satish Langley MD Signed: 08/06/2020 8:42 AM Workstation Name: [id number] Transcribed By: CW Dictated By: DAVID LANGLEY MD Electronically Authenticated By: DAVID LANGLEY MD Signed Date/Time: 08/06/20841 DD/ 0 TD/TT: Print - Differential Diagnosis Hypertensive urgency, ICH, vertigo, electrolyte imbalance Critical care attestation.: If time is entered above; I have spent that time in minutes in the direct care of this critically ill patient, excluding procedure time. ED Disposition Clinical Impression: Hypertension Disposition: DC-01 TO HOME OR SELFCARE Is pt being admited?: No Does the pt Need Aspirin: No Condition: Stable Instructions: Hypertension (ED), Hypertension, Adult, [id number] Additional Instructions: Return to the emergency department should you develop worsening symptoms, inability to tolerate food or liquids, high fever or any other concerns Referrals: ALAN FUENTES MD [Primary Care Provider] - 3-5 Days Time of Disposition: 11:35
[2020-08-06] MEDS ORDERED: cloNIDine 0.1 MG TAB PO ONE (10:08)
[2020-08-06 10:29] LABS: BUN/Creatinine Ratio 18
[2020-08-06 11:23] VITALS: BP 148/74
--- NOTE | 2020-08-07 10:48 | Electrocardiograph Report ---
[facility] Test Date: 2020-08-06 Test Time: 08:21:11 Pat Name: JORDAN MONROY Department: Room: Gender: F Recreational Programs Director: CHARAN : 1965 Requested By: MARIELY SILVA Order Number: [id number] Reading MD: Rich Marshall Measurements Intervals [place] Rate: 72 P: 65 AL: 168 QRS: 15 QRSD: 90 T: 47 QT: 402 QTc: 440 Interpretive Statements Sinus rhythm Probable left atrial enlargement No previous ECG available for comparison Electronically Signed On 08-07-2020 10:48:26 EDT by Rich Marshall
== END 2020-08-06 12:33 | disposition home or self-care (01) ==
LOC: ED 08:05
DX: I10 Essential (primary) hypertension (principal); K21.9 Gastro-esophageal reflux disease without esophagitis; M19.90 Unspecified osteoarthritis, unspecified site; Z90.49 Acquired absence of other specified parts of digestive tract; Z79.899 Other long term (current) drug therapy
CPT/HCPCS: 36415; 70450; 80053; 81001; 84484; 85025; 93005

== ENCOUNTER 2020-08-08 12:49 | Emergency (ER) | payer BC ==
[2020-08-08 13:00] VITALS: BP 153/78
--- NOTE | 2020-08-08 13:17 | Event Note ---
ED Screening Note Date of service: 08/08/20 Time: 13:17 ED Screening Note: Patient complains of near syncopal episode today. She states she has been having repeated episodes similar to this for the past 2 weeks Patient states she gets a sudden pain in her right neck and shoulder and then feels lightheaded as if she is going to pass out History of hypertension Denies any chest pain or shortness of breath This initial assessment/diagnostic orders/clinical plan/treatment(s) is/are subject to change based on patients health status, clinical progression and re- assessment by fellow clinical providers in the ED. Further treatment and workup at subsequent clinical providers discretion. Patient/guardian urged not to elope from the ED as their condition may be serious if not clinically assessed and managed. Initial orders include: Labs EKG Chest x-ray
--- NOTE | 2020-08-08 13:48 | XRay Report ---
XR chest routine 2V INDICATION / CLINICAL INFORMATION: right sided pain COMPARISON: 08/23/2019 FINDINGS: SUPPORT DEVICES: None. HEART / MEDIASTINUM: No significant abnormality. LUNGS / PLEURA: Lungs are clear. Costophrenic sulci are sharp. No pneumothorax. ADDITIONAL FINDINGS: No significant additional findings. IMPRESSION: 1. No acute findings. Signer Name: Donald Castro MD Signed: 08/08/2020 1:43 PM Workstation Name: [id number]
[2020-08-08 14:04] LABS: Basophils # (Auto) 0.1 K/mm3 (0.0-0.1); Eosinophils # (Auto) 0.1 K/mm3 (0.0-0.4); Eosinophils % (Auto) 1.9 % (0.0-4.3); Hematocrit 36.8 % (30.3-42.9); Hemoglobin 12.4 gm/dl (10.1-14.3); Lymphocytes # (Auto) 2.5 K/mm3 (1.2-5.4); Lymphocytes % (Auto) 47.4 % (13.4-35.0); Mean Corpuscular HGB Conc 34 % (30-34); Mean Corpuscular Volume 86 fl (79-97); Monocytes # (Auto) 0.3 K/mm3 (0.0-0.8); Monocytes % (Auto) 5.5 % (0.0-7.3); Platelet Count 305 K/mm3 (140-440); Red Blood Count 4.27 M/mm3 (3.65-5.03); Red Cell Distribution Width 13.1 % (13.2-15.2)
--- NOTE | 2020-08-08 14:04 | Electrocardiograph Report ---
[facility] Test Date: 2020-08-08 Test Time: 13:02:07 Pat Name: JORDAN MONROY Department: Room: Gender: F Seo Manager: SARAHY : 1965 Requested By: FEDE PINTO Order Number: [id number] Reading MD: Rich Marshall Measurements Intervals [place] Rate: 78 P: 51 [place]: 181 QRS: 21 QRSD: 94 T: 47 QT: 383 QTc: 436 Interpretive Statements Sinus rhythm Compared to ECG 08/06/2020 08:21:11 No significant changes Electronically Signed On 08-08-2020 14:03:53 EDT by Rich Marshall
[2020-08-08 14:31] LABS: Alanine Aminotransferase 28 units/L (7-56); Albumin 4.2 g/dL (3.9-5); Blood Urea Nitrogen 9 mg/dL (7-17); Calcium 9.2 mg/dL (8.4-10.2); Hemolysis Index 1
[2020-08-08 14:43] LABS: BUN/Creatinine Ratio 18
[2020-08-08 14:59] LABS: Chol/HDL Ratio 3.92 %; HDL Cholesterol 50 mg/dL (40-59); LDL Cholesterol,Direct 138 mg/dL (50-130)
[2020-08-08 15:33] LABS: Bilirubin,Urine NEG (Negative); Blood,Urine NEG (Negative); Color,Urine Yellow (Yellow); Mucus,Urine FEW /HPF; Urobilinogen,Urine < 2.0 mg/dL (<2.0)
== END 2020-08-08 20:00 | disposition left against medical advice (07) ==
LOC: ED 12:49 → EEVIPCON 12:49 → ED 20:00
DX: R42 Dizziness and giddiness (principal); Z53.21 Procedure and treatment not carried out due to patient leaving prior to being seen by health care provider
CPT/HCPCS: 36415; 71046; 80053; 80061; 81001; 84484; 85025; 93005

== ENCOUNTER 2020-08-13 06:22 | Outpatient (CLI) | payer BC ==
--- NOTE | 2020-08-13 10:08 | Vascular Lab Report ---
DUPLEX DOPPLER ULTRASOUND CAROTID, BILATERAL INDICATION / CLINICAL INFORMATION: syncope. COMPARISON: None available. FINDINGS: RIGHT CAROTID: No significant abnormality. - PLAQUE ESTIMATE (%): < 50% - CCA velocity: 85 cm/sec. - ICA peak systolic velocity: 80 cm/sec. - ICA/CCA PSV Ratio: 0.9 Right Vertebral Artery: Antegrade flow. LEFT CAROTID: No significant abnormality. - PLAQUE ESTIMATE (%): < 50% - CCA velocity: 95 cm/sec. - ICA peak systolic velocity: 89 cm/sec. - ICA/CCA PSV Ratio: 0.9 Left Vertebral Artery: Antegrade flow. IMPRESSION: 1. Right Internal Carotid Artery: Less than 50% diameter stenosis. 2. Left Internal Carotid Artery: Less than 50% diameter stenosis. Velocity criteria are extrapolated from diameter data as defined by the Society of Radiologists in Ul trasound Consensus Conference, Radiology 2003; 229;340-346. NO STENOSIS (NORMAL) - Plaque = none; ICA PSV < 125 cm/sec; ICA/CCA PSV Ratio < 2.0 <50% STENOSIS - Plaque < 50%; ICA PSV < 125 cm/sec; ICA/CCA PSV Ratio < 2.0 50-69% STENOSIS - Plaque > 50%; ICA PSV = 125-230 cm/sec; ICA/CCA PSV Ratio = 2.0-4.0 >70% BUT <100% STENOSIS - Plaque > 50%; ICA PSV > 230 cm/sec; ICA/CCA PSV Ratio > 4.0 NEAR OCCLUSION - Plaque = visible lumen; ICA PSV = high/low/none; ICA/CCA PSV Ratio = variable TOTAL OCCLUSION - Plaque = no lumen; ICA PSV = none; ICA/CCA PSV Ratio = N/A Scribed by: Aubrie Thompson RDMS, RVT Scribed: 08/13/2020 9:02 AM Signer Name: Jose R Garcia MD Signed: 08/13/2020 10:03 AM Workstation Name: [id number]
== END 2020-08-13 06:23 | disposition home or self-care (01) ==
LOC: VAS 06:22
PROVIDERS: ATTEND Family Medicine
DX: I65.23 Occlusion and stenosis of bilateral carotid arteries (principal); R09.89 Other specified symptoms and signs involving the circulatory and respiratory systems; I10 Essential (primary) hypertension; R55 Syncope and collapse
CPT/HCPCS: 93880

== ENCOUNTER 2021-01-12 10:03 | Outpatient (CLI) | payer BC ==
[2021-01-12 10:36] LABS: Basophils % (Auto) 0.5 % (0.0-1.8); Eosinophils # (Auto) 0.2 K/mm3 (0.0-0.4); Eosinophils % (Auto) 3.3 % (0.0-4.3); Hematocrit 37.2 % (30.3-42.9); Hemoglobin 12.7 gm/dl (10.1-14.3); Lymphocytes # (Auto) 2.4 K/mm3 (1.2-5.4); Lymphocytes % (Auto) 46.6 % (13.4-35.0); Mean Corpuscular HGB Conc 34 % (30-34); Mean Corpuscular Volume 87 fl (79-97); Monocytes # (Auto) 0.3 K/mm3 (0.0-0.8); Monocytes % (Auto) 5.7 % (0.0-7.3); Platelet Count 295 K/mm3 (140-440); Red Blood Count 4.26 M/mm3 (3.65-5.03); Red Cell Distribution Width 13.5 % (13.2-15.2)
[2021-01-12 10:51] LABS: Alanine Aminotransferase 26 units/L (7-56); Albumin 4.2 g/dL (3.9-5); Blood Urea Nitrogen 11 mg/dL (7-17); Calcium 9.4 mg/dL (8.4-10.2); Chol/HDL Ratio 4.06 %; HDL Cholesterol 48 mg/dL (40-59); Hemolysis Index 6; LDL Cholesterol,Direct 137 mg/dL (50-130)
[2021-01-12 13:06] LABS: BUN/Creatinine Ratio 28
== END 2021-01-12 10:04 | disposition home or self-care (01) ==
LOC: LAB 10:03
PROVIDERS: ATTEND Family Medicine
DX: Z00.00 Encounter for general adult medical examination without abnormal findings (principal); I10 Essential (primary) hypertension; R73.03 Prediabetes; E78.2 Mixed hyperlipidemia
CPT/HCPCS: 36415; 80053; 80061; 83036; 84443; 85025

== ENCOUNTER 2021-05-20 12:55 | Outpatient (CLI) | payer BC ==
--- NOTE | 2021-05-20 16:00 | Magnetic Resonance Report ---
MRI PELVIS WITHOUT CONTRAST INDICATION / CLINICAL INFORMATION: PELVIS MASS ISCHIAL TUBEROSITY. TECHNIQUE: Multiplanar, multisequence MR images were obtained. No contrast used. COMPARISON: MRI dated 05/08/20 FINDINGS: BONES: No significant bone marrow edema. No fracture. No osseous lesion. SACROILIAC JOINT(S): No significant abnormality. RIGHT HIP JOINT: No significant abnormality. LEFT HIP JOINT: No significant abnormality. GLUTEAL MUSCLES/TENDONS: No significant abnormality. ILIOPSOAS MUSCLES/TENDONS: No significant abnormality. HAMSTRING MUSCLES/TENDONS: No significant abnormality. GROIN MUSCLES/TENDONS: No significant abnormality. SOFT TISSUES: Within the soft tissues adjacent to the right ischial tuberosity and proximal right ham string tendons, there is an ovoid, well-defined soft tissue mass measuring 3.5 x 2.3 x 1.9 cm which i s essentially unchanged since the prior MRI. Lesion is isointense to skeletal muscle on T1-weighted i mages and hyperintense but slightly heterogeneous on T2-weighted images. There has been no significan t change. LOWER LUMBAR SPINE: No significant abnormality of visualized lower lumbar spine. SOFT TISSUE WITHIN PELVIS: No significant abnormality. ADDITIONAL FINDINGS: None. IMPRESSION: 1. No change in the soft tissue mass of the proximal posterior right thigh over slightly greater than one year. 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 Signer Name: Sixto Calloway MD Signed: 05/20/2021 3:56 PM Workstation Name: [id number]
== END 2021-05-20 12:56 | disposition home or self-care (01) ==
LOC: MRI 12:55
PROVIDERS: ATTEND Orthopaedic Surgery
DX: R19.09 Other intra-abdominal and pelvic swelling, mass and lump (principal); R22.41 Localized swelling, mass and lump, right lower limb
CPT/HCPCS: 72195

== ENCOUNTER 2021-06-05 12:06 | Outpatient (CLI) | payer BC ==
--- NOTE | 2021-06-08 07:03 | Ultrasound Report ---
ULTRASOUND THYROID INDICATION / CLINICAL INFORMATION: NECK SWELLING. COMPARISON: None available. FINDINGS: RIGHT LOBE: Size = 5.1 cm. LEFT LOBE: Size = 4.3 cm. ISTHMUS: Thickness = 0.30 cm. APPEARANCE: Normal. SMALL NODULES < 1 cm: None. NODULES >= 1 cm or with SUSPICIOUS FEATURES: - NODULE # 1 - Location: Right Lower - Maximum Size (cm): 1.1 - Significant Change (>= 20% in 2 dim. & inc. >= 2mm): No prior study - Composition: Solid = 2 points - Echogenicity: Hyperechoic or Isoechoic = 1 point - Shape: Llevo-gnrn-vcnl = 0 points - Margin: Ill-defined = 0 points - Echogenic Foci: None = 0 points - Additional Echogenic Foci: None = 0 points - Additional Findings: None. - ACR TI-RADS Score / Category = 3 points / TI-RADS 3 - No additional suspicious thyroid nodules. LYMPH NODES: No abnormal lymph nodes. PARATHYROID GLANDS: No abnormal parathyroid glands. ADDITIONAL FINDINGS: None. IMPRESSION: 1. 1.1 cm category 3 lesion in the right lobe. See below for follow-up recommendations. ACR TI-RADS Thyroid Nodule Recommendations TI-RADS 1 (0 pts) -- Benign. No Fine Needle Aspirate biopsy (FNA) or follow-up. TI-RADS 2 (1-2 pts) -- Not Suspicious. No FNA or follow-up. TI-RADS 3 (3 pts) -- Mildly Suspicious. If >2.5 cm: FNA. If >1.5 cm: Follow up at 1, 3, 5 years. TI-RADS 4 (4-6 pts) -- Moderately Suspicious. If >1.5 cm: FNA. If >1 cm: Follow up at 1, 2, 3, 5 year s. TI-RADS 5 (7+ pts) -- Highly Suspicious. If >1 cm: FNA. If > 0.5 cm: Follow annually for 5 years. REFERENCE: ACR Thyroid Imaging, Reporting and Data System (TI-RADS): White Paper of the ACR TI-RADS C ommittee. J AM Hosea Radiol 2017;14:587-595. NOTE: Nodules < 1 cm do not typically require follow-up or FNA unless there are suspicious features. NOTE: Nodule size maximum dimension determines whether a given lesion should be biopsied or followed. NOTE: If multiple nodules meet criteria for FNA, only the two (2) most suspicious nodules should be b iopsied. In addition, FNA of any suspicious cervical nodes should be biopsied. NOTE: Predominantly Cystic nodules and Spongiform nodules, composed predominantly (>50%) of small cys tic spaces, are considered benign (TI-RADS 1) regardless of other criteria. Signer Name: Isai Hayden MD Signed: 06/08/2021 6:59 AM Workstation Name: [id number]
== END 2021-06-05 12:07 | disposition home or self-care (01) ==
LOC: US 12:06
PROVIDERS: ATTEND Internal Medicine
DX: R22.1 Localized swelling, mass and lump, neck (principal)
CPT/HCPCS: 76536

== ENCOUNTER 2021-06-25 06:29 | Outpatient (CLI) | payer BC ==
--- NOTE | 2021-06-25 09:36 | XRay Report ---
LEFT FOOT 3 VIEW(S) INDICATION / CLINICAL INFORMATION: LEFT FOOT PAIN COMPARISON: None available. FINDINGS: BONES / JOINT(S): No acute fracture or subluxation. No significant arthritis. There is spurring on th e calcaneus at the insertion site of the plantar fascia. SOFT TISSUES: No significant abnormality. ADDITIONAL FINDINGS: None. Signer Name: Robin Rothman MD Signed: 06/25/2021 9:32 AM Workstation Name: [id number]
--- NOTE | 2021-06-25 09:40 | XRay Report ---
LEFT ANKLE 3 VIEW(S) INDICATION / CLINICAL INFORMATION: LEFT ANKLE PAIN COMPARISON: None available. FINDINGS: BONES / JOINT(S): No acute fracture or subluxation. No significant arthritis. There are 2 accessory o ssifications noted adjacent to the medial malleolus. SOFT TISSUES: No significant abnormality. ADDITIONAL FINDINGS: None. Signer Name: Robin Rothman MD Signed: 06/25/2021 9:36 AM Workstation Name: [id number]
--- NOTE | 2021-06-26 09:32 | Magnetic Resonance Report ---
MRI LEFT ANKLE WITHOUT CONTRAST INDICATION / CLINICAL INFORMATION: Left ankle pain. TECHNIQUE: Multiplanar, multisequence MR images were obtained. No contrast used. COMPARISON: Left foot and ankle radiographs 06/25/2021. FINDINGS: ACHILLES TENDON: No significant abnormality. PLANTAR FASCIA: No significant abnormality. POSTERIOR TIBIAL / FLEXOR TENDONS: No significant abnormality. PERONEAL TENDONS: No significant abnormality. ANTERIOR TIBIAL / EXTENSOR TENDONS: No significant abnormality. TALOFIBULAR LIGAMENTS: Chronically torn ATFL. TIBIOFIBULAR LIGAMENTS: No significant abnormality. DISTAL TIBIOFIBULAR SYNDESMOSIS: No significant abnormality. CALCANEOFIBULAR LIGAMENT: Chronically torn at the calcaneal attachment DELTOID LIGAMENT: No significant abnormality. SPRING LIGAMENT: Chronically torn TIBIOTALAR JOINT SPACE: No chondrosis or articular cartilage defect. No significant joint effusion or synovitis. No intra-articular bodies. SUBTALAR JOINTS: No significant abnormality. SINUS TARSI: Loss of normal fat signal within sinus tarsi. TARSAL TUNNEL: No significant abnormality. BONES / OTHER JOINTS: Mild polyarticular degenerative changes of the foot. No fracture. Moderate-size d plantar calcaneal enthesophyte. SUBCUTANEOUS SOFT TISSUES: No significant abnormality. ADDITIONAL FINDINGS: None. IMPRESSION: 1. No acute abnormality. 2. Chronically torn ATFL, calcaneal fibular ligament and spring ligament. 3. 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 4. Mild polyarticular degenerative changes of the foot. Report dictated by: Aayush Hare MD Report dictated on: 06/26/2021 7:26 AM I have reviewed the images, agree with this report, and edited this report as needed. Signer Name: Isai Hayden MD Signed: 06/26/2021 9:28 AM Workstation Name: [id number]
== END 2021-06-25 06:30 | disposition home or self-care (01) ==
LOC: MRI 06:29
PROVIDERS: ATTEND Podiatrist Foot & Ankle Surgery
DX: S93.412A Sprain of calcaneofibular ligament of left ankle, initial encounter (principal); M19.072 Primary osteoarthritis, left ankle and foot; D49.2 Neoplasm of unspecified behavior of bone, soft tissue, and skin; G60.8 Other hereditary and idiopathic neuropathies; M25.772 Osteophyte, left ankle; M77.32 Calcaneal spur, left foot; X58.XXXA Exposure to other specified factors, initial encounter; Y93.89 Activity, other specified; Y92.89 Other specified places as the place of occurrence of the external cause; Y99.8 Other external cause status
CPT/HCPCS: 73721

== ENCOUNTER 2021-08-03 15:53 | Outpatient (CLI) | payer BC ==
--- NOTE | 2021-08-03 17:53 | Vascular Lab Report ---
DUPLEX DOPPLER LOWER EXTREMITY VEINS, LEFT INDICATION / CLINICAL INFORMATION: LT. LEG PAIN. TECHNIQUE: Duplex doppler imaging was performed through the veins of the left lower extremity using v enous compression and other maneuvers. COMPARISON: None available. FINDINGS: LEFT COMMON FEMORAL VEIN: Negative. LEFT FEMORAL VEIN: Negative. LEFT POPLITEAL VEIN: Negative. LEFT CALF VEINS: Negative. ADDITIONAL FINDINGS: Moderate left knee effusion. IMPRESSION: 1. No sonographic evidence for DVT in the left lower extremity. 2. Left knee effusion. Scribed by: Aubrie Thompson RDMS, IZABELLAT, YENIFER Scribed: 08/03/2021 3:44 PM I have reviewed the images, agree with this report, and edited this report as needed. Signer Name: Dontae Vaughan MD Signed: 08/03/2021 5:49 PM Workstation Name: [id number]
== END 2021-08-03 15:54 | disposition home or self-care (01) ==
LOC: VAS 15:53
PROVIDERS: ATTEND Podiatrist Foot & Ankle Surgery
DX: M25.462 Effusion, left knee (principal); M79.89 Other specified soft tissue disorders

== ENCOUNTER 2021-09-10 07:17 | Emergency (ER) | payer BC ==
[2021-09-10 07:37] VITALS: BP 169/83
[2021-09-10] MEDS ORDERED: NEOMY 3.5 MG/BACIT 400 UNITS/POLY B 5000 UNITS/GM OINT PACKET TP ONE (08:01)
--- NOTE | 2021-09-10 08:02 | Emergency Department Report ---
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 She sustained it at the chiropractor's office yesterday. She states that they told her it occurred because she had lotion on when they did what sounds like ultrasound therapy. She has a small blistered area approximately the size of a quarter on her mid right lower thoracic back area. -: Sudden, days(s) Place: home Patient Tetanus UTD: Yes Context: accidental Associated Symptoms: none - Related Data Home Medications Medication Instructions Recorded Confirmed Last Taken Metoprolol [Lopressor TAB] 50 mg PO DAILY 06/12/14 08/06/20 01/19/18 05:15 Amlodipine Besylate/Valsartan 1 tab PO DAILY 01/16/18 08/06/20 01/18/18 [Amlodipine-Valsartan 10-320 mg] Ibuprofen [Advil 100 MG tab] 200 mg PO Q6H PRN 01/16/18 08/06/20 1 Week Ago ~01/12/18 hydroCHLOROthiazide [HCTZ] 25 mg PO QDAY 01/16/18 08/06/20 01/18/18 Amlodipine Besylate/Valsartan 10 - 320 mg PO QDAY 08/23/19 08/06/20 08/23/19 [Amlodipine-Valsartan 10-320 mg] Previous Rx's Medication Instructions Recorded Last Taken Type Aspirin [Aspirin BABY CHEW TAB] 81 mg PO QDAY #30 tab.chew 08/24/19 Unknown Rx Neomy/Baci/Polymyx B Opth Oint 1 inch OD BID #1 tube 09/10/21 Unknown Rx [Neosporin] Allergies Allergy/AdvReac Type Severity Reaction Status Date / Time sulfamethoxazole AdvReac Itching Verified 08/06/20 08:10 [From Bactrim] trimethoprim [From Bactrim] AdvReac Itching Verified 08/06/20 08:10 ED Review of Systems ROS: Stated complaint: BURN/BACK/BLISTER Other details as noted in HPI Comment: All other systems reviewed and negative ED Past Medical Hx - Past Medical History Previous Medical History?: Yes Hx Hypertension: Yes Hx Heart Attack/AMI: No Hx Diabetes: No (RECENT ELEVATION OF A1C- NO DX YET) Hx GERD: Yes Hx Liver Disease: No Hx Renal Disease: No Hx Sickle Cell Disease: No Hx Arthritis: Yes Hx Seizures: No Hx Asthma: No Hx COPD: No Hx HIV: No Additional medical history: MITRAL VALVE REGURGITATION. PRE DIABETIC - Surgical History Past Surgical History?: Yes Hx Pacemaker: No Hx Internal Defibrillator: No Hx Cholecystectomy: Yes Hx Breast Surgery: Yes (BREAST SURGERY) Additional Surgical History: TUBAL LIGATION - Family History Family history: no significant - Social History Smoking Status: Never Smoker Substance Use Type: None (Denies illicit drug use), Alcohol (Rarely) - Medications Home Medications: Home Medications Medication Instructions Recorded Confirmed Last Taken Type Metoprolol [Lopressor TAB] 50 mg PO DAILY 06/12/14 08/06/20 01/19/18 05:15 History Amlodipine Besylate/Valsartan 1 tab PO DAILY 01/16/18 08/06/20 01/18/18 History [Amlodipine-Valsartan 10-320 mg] Ibuprofen [Advil 100 MG tab] 200 mg PO Q6H PRN 01/16/18 08/06/20 1 Week Ago History ~01/12/18 hydroCHLOROthiazide [HCTZ] 25 mg PO QDAY 01/16/18 08/06/20 01/18/18 History Amlodipine Besylate/Valsartan 10 - 320 mg PO QDAY 08/23/19 08/06/20 08/23/19 History [Amlodipine-Valsartan 10-320 mg] Aspirin [Aspirin BABY CHEW TAB] 81 mg PO QDAY #30 tab.chew 08/24/19 08/06/20 Unknown Rx Neomy/Baci/Polymyx B Opth Oint 1 inch OD BID #1 tube 09/10/21 Unknown Rx [Neosporin] ED Physical Exam - General Limitations: No Limitations General appearance: alert, in no apparent distress - Head Head exam: Present: atraumatic, normocephalic - Eye Eye exam: Present: normal appearance - ENT ENT exam: Present: mucous membranes moist - Neck Neck exam: Present: normal inspection - Respiratory Respiratory exam: Present: normal lung sounds bilaterally. Absent: respiratory distress - Cardiovascular Cardiovascular Exam: Present: regular rate, normal rhythm. Absent: systolic mur mur, diastolic murmur, rubs, gallop - GI/Abdominal GI/Abdominal exam: Present: soft, normal bowel sounds - Extremities Exam Extremities exam: Present: normal inspection - Back Exam Back exam: Present: normal inspection - Neurological Exam Neurological exam: Present: alert, oriented X3 - Psychiatric Psychiatric exam: Present: normal affect, normal mood - Skin Skin exam: Present: warm, dry, intact, normal color, other. Absent: rash - Expanded Skin Exam Expanded 1 - Quarter size second-degree burn ED Course Vital Signs 09/10/21 07:34 Temperature 98.2 F Pulse Rate 96 H Respiratory 16 Rate Blood Pressure 169/83 [Left] O2 Sat by Pulse 96 Oximetry ED Medical Decision Making - Medical Decision Making Burn is 1 large blister. It is protruding about 3 cm from the patient's skin. Surprised it has not popped at this point. I have used an 18-gauge needle to open the wound to drain the fluid. I have applied Neosporin because she is allergic to Bactrim. Patient educated on wound care. I have applied a dressing. Patient's tetanus is up-to-date. No indication for systemic antibiotics. Patient being discharged home with discharge plan of care including diet, activity, medications and follow-up. She verbalizes understanding of plan of care Vital Signs 09/10/21 07:34 Temperature 98.2 F Pulse Rate 96 H Respiratory 16 Rate Blood Pressure 169/83 [Left] O2 Sat by Pulse 96 Oximetry - Differential Diagnosis burn Critical care attestation.: If time is entered above; I have spent that time in minutes in the direct care of this critically ill patient, excluding procedure time. ED Disposition Clinical Impression: Burn Disposition: 01 HOME / SELF CARE / HOMELESS Is pt being admited?: No Does the pt Need Aspirin: No Condition: Stable Instructions: Burn Care, Adult, [id number] Additional Instructions: Twice per day you will take off your dressing, wash the area with soap and water, and reapply Neosporin with a gauze dressing No oral antibiotics are needed Motrin or Tylenol can be used for pain Prescriptions: Neomy/Baci/Polymyx B Opth Oint [Neosporin] 1 inch OD BID #1 tube Referrals: RAJNI LÓPEZ MD [Staff Physician] - 3-5 Days Time of Disposition: 08:15
== END 2021-09-10 08:35 | disposition home or self-care (01) ==
LOC: ED 07:17
DX: T21.21XA Burn of second degree of chest wall, initial encounter (principal); I10 Essential (primary) hypertension; K21.9 Gastro-esophageal reflux disease without esophagitis; M19.90 Unspecified osteoarthritis, unspecified site; Z90.49 Acquired absence of other specified parts of digestive tract; Z98.890 Other specified postprocedural states; Z79.899 Other long term (current) drug therapy; Z88.2 Allergy status to sulfonamides; Z91.09 Other allergy status, other than to drugs and biological substances; X08.8XXA Exposure to other specified smoke, fire and flames, initial encounter; Y93.89 Activity, other specified; Y92.89 Other specified places as the place of occurrence of the external cause; Y99.8 Other external cause status
CPT/HCPCS: 99282

== ENCOUNTER 2021-09-17 10:21 | Outpatient (CLI) | payer BC ==
[2021-09-17 11:17] LABS: Basophils % (Auto) 0.8 % (0.0-1.8); Eosinophils # (Auto) 0.1 K/mm3 (0.0-0.4); Eosinophils % (Auto) 3.1 % (0.0-4.3); Hematocrit 40.1 % (30.3-42.9); Hemoglobin 13.2 gm/dl (10.1-14.3); Lymphocytes # (Auto) 2.5 K/mm3 (1.2-5.4); Lymphocytes % (Auto) 52.2 % (13.4-35.0); Mean Corpuscular HGB Conc 33 % (30-34); Mean Corpuscular Volume 87 fl (79-97); Monocytes # (Auto) 0.3 K/mm3 (0.0-0.8); Monocytes % (Auto) 6.5 % (0.0-7.3); Platelet Count 339 K/mm3 (140-440); Red Blood Count 4.61 M/mm3 (3.65-5.03); Red Cell Distribution Width 13.3 % (13.2-15.2)
[2021-09-17 11:26] LABS: Alanine Aminotransferase 23 units/L (7-56); Albumin 4.7 g/dL (3.9-5); Blood Urea Nitrogen 9 mg/dL (7-17); Calcium 9.8 mg/dL (8.4-10.2); Hemolysis Index 7
[2021-09-17 11:27] LABS: BUN/Creatinine Ratio 18
[2021-09-17 11:30] LABS: Mucus,Urine 3+ /HPF
[2021-09-17 11:35] LABS: Bilirubin,Urine Negative (Negative); Blood,Urine Negative (Negative); Color,Urine Straw (Yellow)
[2021-09-17 11:36] LABS: Protein,Urine <15 mg/dL mg/dL (Negative); Urobilinogen,Urine < 2.0 mg/dL (<2.0)
== END 2021-09-17 10:22 | disposition home or self-care (01) ==
LOC: LAB 10:21
PROVIDERS: ATTEND Family Medicine
DX: R35.0 Frequency of micturition (principal); R68.2 Dry mouth, unspecified
CPT/HCPCS: 36415; 80053; 81001; 83036; 85025; 87086

== ENCOUNTER 2021-10-13 10:17 | Day surgery (SDC) | payer BC ==
[~2021-10-13 10:17] MED LIST changes: -ANCEF/STERILE WATER 2 GM/20 ML IV NR; -MARCAINE 0.25% INFILTRATI ONE; -NACL 0.9% IR ONE; +SODIUM CHLORIDE 0.9% 1000 ML 1,000 ML IV SCH; -XYLOCAINE 1%/ EPI 1:100,000 INFILTRATI ONE
--- NOTE | 2021-10-13 10:49 | Anesthesia Day of Surgery ---
Anesthesia Day of Surgery - Day of Surgery Patient Examined: Yes Patient H&P Reviewed: Yes Patient is NPO: Yes
--- NOTE | 2021-10-13 10:49 | Anesthesia Consultation ---
Anesthesia Consult and Med Hx Date of service: 10/13/21 - Airway Anesthetic Teeth Evaluation: Good ROM Head & Neck: Adequate Mental/Hyoid Distance: Adequate Mallampati Class: Class II Intubation Access Assessment: Probably Good - Pre-Operative Health Status ASA Pre-Surgery Classification: ASA2 Proposed Anesthetic Plan: MAC - Pulmonary Hx Smoking: No Hx Respiratory Symptoms: No - Cardiovascular System Hx Hypertension: Yes (took antihypertensives this morning) Hx Heart Attack/AMI: No - Central Nervous System CVA: No - Gastrointestinal Hx Gastroesophageal Reflux Disease: Yes - Endocrine Hx Renal Disease: No Hx Liver Disease: No Hx Insulin Dependent Diabetes: No Hx Non-Insulin Dependent Diabetes: No (pre-DM) Hx Thyroid Disease: No - Other Systems Hx Obesity: Yes (BMI 37) - Additional Comments Anesthesia Medical History Comments: Hx PONV.
[2021-10-13] MEDS ORDERED: propofoL 200 MG/20 ML VIAL IV ONE (11:34)
--- NOTE | 2021-10-13 11:58 | Short Stay Summary ---
Short Stay Documentation Date of service: 10/13/21 Narrative H&P: The patient returns for EGD for surveillance of Diggs's esophagus. - History Past Medical History: hypertension Past Surgical History: cholecystectomy, Other (breast surgery) Social history: no significant social history - Allergies and Medications Current Medications: Allergies sulfamethoxazole [From Bactrim] Adverse Reaction (Verified 08/06/20 08:10) Itching trimethoprim [From Bactrim] Adverse Reaction (Verified 08/06/20 08:10) Itching Home Medications Medication Instructions Recorded Confirmed Last Taken Type Metoprolol [Lopressor TAB] 50 mg PO DAILY 06/12/14 08/06/20 01/19/18 05:15 History Amlodipine Besylate/Valsartan 1 tab PO DAILY 01/16/18 08/06/20 01/18/18 History [Amlodipine-Valsartan 10-320 mg] Ibuprofen [Advil 100 MG tab] 200 mg PO Q6H PRN 01/16/18 08/06/20 1 Week Ago History ~01/12/18 hydroCHLOROthiazide [HCTZ] 25 mg PO QDAY 01/16/18 08/06/20 01/18/18 History Amlodipine Besylate/Valsartan 10 - 320 mg PO QDAY 08/23/19 08/06/20 08/23/19 History [Amlodipine-Valsartan 10-320 mg] Aspirin [Aspirin BABY CHEW TAB] 81 mg PO QDAY #30 tab.chew 08/24/19 08/06/20 Unknown Rx Neomy/Baci/Polymyx B Opth Oint 1 inch OD BID #1 tube 09/10/21 Unknown Rx [Neosporin] Active Medications Sodium Chloride (Nacl 0.9% 1000 Ml) 1,000 mls @ 50 mls/hr IV DIRECT MEG - Physical exam General appearance: no acute distress, well-nourished Integumentary: no rash, no growths, no abnormal pigmentation HEENT: Atraumatic, PERRLA, EOMI Lungs: Clear to auscultation, Normal air movement Breasts: deferred Heart: Regular rate, Normal S1, Normal S2, No murmurs Gastrointestinal: normoactive bowel sounds, no tenderness, no distended, no masses, no guarding, no organomegaly Female Genitourinary: deferred Rectal Exam: deferred Extremities: no ischemia, pulses intact, pulses symmetrical, No edema, normal temperature, normal color, Full ROM Neurological: Normal gait, Normal speech, Strength at 5/5 X4 ext, Normal tone, Sensation intact, Cranial nerves 3-12 NL - Brief post op/procedure progress note Date of procedure: 10/13/21 Procedure: see dictation Estimated blood loss: minimal Pathology: list (biopsies of distal esopahgus) Specimen disposition: to lab Condition: stable - Disposition Condition at discharge: Good - Discharge Diagnoses (1) History of Diggs's esophagus Status: Acute Short Stay Discharge Plan Activity: other (no driving fo 24 hours.) Diet: regular Follow up with: KIRSTIE GONSALES MD [Primary Care Provider] - 7 Days
--- NOTE | 2021-10-13 12:03 | Operative Report ---
Operative Report Operative Report: Date of procedure: 10/13/2021 Procedure: Esophagogastroduodenoscopy with biopsy of the distal esophagus. Preprocedure diagnosis: History of Diggs's esophagus Post procedure diagnosis: Large hiatus hernia. Short tongues of salmon-pink mucosa more consistent with healing squamous mucosa than Diggs's. Endoscopist: Dr. Koenig Anesthesia: Monitored anesthesia care per anesthesia department Medications: Propofol per anesthesia Estimated blood loss: 0 After careful discussion of the nature and purpose of the procedure as well as details the technique risks benefits and alternatives consent was obtained. The patient was placed in the left lateral decubitus position and medicated per anesthesia. The tip of the [employer] EQ 570 video scope was passed per orum under direct vision into the esophagus and advanced into the stomach and descending duodenum. The descending duodenum the duodenal bulb and pylorus were symmetrical and normal. The scope was withdrawn into the stomach and the stomach then gently insufflated with air. The antrum was normal. The stomach was further insufflated and the scope was then retroflexed and partially withdrawn. A large hiatus hernia was present. The diaphragm level was at 41 cm the cardia, fundus, and body of the stomach were within normal limits and easily distensible.The scope was then withdrawn in the forward position. The esophagogastric junction was at 35 cm. There was a 1 cm x 3 mm wide salmon-pink tongue of mucosa from the Z-line more suggestive of healing squamous mucosa than Diggs's. Biopsies were taken. The esophageal body was otherwise normal throughout. The procedure was was well tolerated and the patient was observed in recovery. Impressions: [Large hiatus hernia. Possible Diggs's versus healing squamous mucosa. Plan: Await pathology. Consider surveillance study in 5 years depending upon the pathology. Electronically signed: Soham Koenig MD
--- NOTE | 2021-10-13 12:53 | Post Anesthesia Evaluation ---
- Post Anesthesia Evaluation Patient Participated: Yes Airway Patent: Yes Stable Respiratory Function: Yes Nausea/Vomiting: No Temp > 96.8F: Yes Pain Manageable: Yes Adequeate Hydration: Yes Anesthesia Complications: No
[2021-10-13 14:20] VITALS: BP 123/81
== END 2021-10-13 13:00 | disposition home or self-care (01) ==
LOC: GIO 10:17
PROVIDERS: ATTEND Internal Medicine Gastroenterology
DX: K22.70 Barrett's esophagus without dysplasia (principal); K44.9 Diaphragmatic hernia without obstruction or gangrene; K31.89 Other diseases of stomach and duodenum; I10 Essential (primary) hypertension; K21.9 Gastro-esophageal reflux disease without esophagitis; E66.9 Obesity, unspecified; M19.90 Unspecified osteoarthritis, unspecified site; E11.9 Type 2 diabetes mellitus without complications; F41.9 Anxiety disorder, unspecified; Z79.899 Other long term (current) drug therapy; Z98.890 Other specified postprocedural states; Z88.8 Allergy status to other drugs, medicaments and biological substances; Z79.82 Long term (current) use of aspirin; Z90.49 Acquired absence of other specified parts of digestive tract; Z98.51 Tubal ligation status; Z68.37 Body mass index [BMI] 37.0-37.9, adult
CPT/HCPCS: 43239; 88305; J2704; J7030